=== PATIENT | male | born 1950 | race Caucasian/White ===

== ENCOUNTER → 2020-11-17 | Outpatient (CLI) | payer MEDICARE, OTHER ==
[~2020-11-17] MED LIST: DIATRIZOATE MEGLUM/SODIUM 37% 120 ML (GASTROGRAFIN) NG ONE
--- NOTE | 2020-11-17 20:23 | Diagnostic Imaging Report ---
INDICATION: PEG tube evaluation COMPARISON: None. FINDINGS: The existing PEG tube is injected with contrast demonstrating patency of the stomach and duodenum. There was no extravasation of contrast or obstruction. IMPRESSION: PEG tube within the stomach. Dictated by: Dictated on workstation # [id number]
== END ==
LOC: EDSEX 19:29 → RAD 19:29
PROVIDERS: ATTEND Emergency Medicine
DX: Z43.1 Encounter for attention to gastrostomy (principal)
CPT/HCPCS: 49465